=== PATIENT | female | born 1955 | race Asian ===

== ENCOUNTER 2018-08-31 18:42 | Inpatient (IN) | payer MEDICARE, OTHER ==
[2018-08-31 19:18] LABS: WHITE BLOOD COUNT 11.1 10^3/ul (4.8-10.8)
[2018-08-31 19:18] LABS: ADD MAN DIFF? NO; BASOPHIL # 0.1 10^3/ul (0.0-0.1); BASOPHILS % 0.5 % (0.0-2.0); EOSINOPHILS # 0.1 10^3/ul (0.0-0.5); EOSINOPHILS % 0.7 % (0.0-7.0); HEMATOCRIT 37.2 % (37.0-47.0); HEMOGLOBIN 11.4 g/dl (12.0-16.0); LYMPHOCYTES # 1.3 10^3/ul (0.8-2.9); MEAN CORPUSCULAR HEMOGLOBIN 30.7 pg (29.0-33.0); MEAN CORPUSCULAR HGB CONC 30.6 g/dl (32.0-37.0); MEAN CORPUSCULAR VOLUME 100.3 fl (82.0-101.0); MEAN PLATELET VOLUME 10.5 fl (7.4-10.4); MONOCYTES % 8.6 % (0.0-11.0); NEUTROPHIL # 8.6 10^3/ul (1.6-7.5); NEUTROPHILS % 77.8 % (39.0-77.0); PLATELET COUNT 196 10^3/UL (140-415); RED BLOOD COUNT 3.71 10^6/ul (4.20-5.40); RED CELL DISTRIBUTION WIDTH 14.7 % (11.5-14.5)
[2018-08-31] MEDS: CEFTRIAXONE 1 GM/50 ML (PMX) 50 ML IVPB (19:35)
[2018-08-31] MEDS: ACETAMINOPHEN 650 MG SUPP PR (19:35)
[2018-08-31 19:38] LABS: INR 1.11; PARTIAL THROMBOPLASTIN TIME 36.3 Sec (23.0-35.0); PROTIME 14.4 Sec (11.9-14.9); PT RATIO 1.1
[2018-08-31 19:39] LABS: ALANINE AMINOTRANSFERASE 81 IU/L (13-69); ALBUMIN 3.9 g/dl (3.3-4.9); ALBUMIN/GLOBULIN RATIO 1.11; ALKALINE PHOSPHATASE 308 IU/L (42-121); ANION GAP 8 (5-13); ASPARTATE AMINO TRANSFERASE 127 IU/L (15-46); BLOOD UREA NITROGEN 20 mg/dl (7-20); CALCIUM 9.1 mg/dl (8.4-10.2); CARBON DIOXIDE 28 mmol/L (21-31); CHLORIDE 103 mmol/L (97-110); CREATININE 1.09 mg/dl (0.44-1.00); Estimated GFR 51 mL/min (>60); GLUCOSE 171 mg/dl (70-220); LIPASE 147 U/L (23-300); POTASSIUM 3.4 mmol/L (3.5-5.1); SODIUM 139 mmol/L (135-144); TOTAL PROTEIN 7.4 g/dl (6.1-8.1)
[2018-08-31 19:44] LABS: ADD UMIC YES; UR ASCORBIC ACID NEGATIVE (NEGATIVE); UR BACTERIA FEW /HPF (NONE SEEN); UR BILIRUBIN (Dip) NEGATIVE (NEGATIVE); UR BLOOD (Dip) 2+ mg/dL (NEGATIVE); UR CLARITY CLEAR (CLEAR); UR COLOR YELLOW (YELLOW); UR GLUCOSE (Dip) NEGATIVE (NEGATIVE); UR KETONES (Dip) NEGATIVE (NEGATIVE); UR LEUKOCYTE ESTERASE (Dip) NEGATIVE Leu/ul (NEGATIVE); UR NITRITE (Dip) NEGATIVE (NEGATIVE); UR RBC 5 /HPF (0-5); UR SPECIFIC GRAVITY (Dip) 1.012 (1.003-1.030); UR TOTAL PROTEIN (Dip) 3+ mg/dl (NEGATIVE); UR UROBILINOGEN (Dip) 1+ mg/dL (NEGATIVE); UR WBC 5 /HPF (0-5)
[2018-08-31] MEDS: ONDANSETRON 4 MG INJ IV (19:46)
[2018-08-31 19:48] LABS: B-TYPE NATRIURETIC PEPTIDE 3690 PG/ML (0-125)
[2018-08-31 19:51] LABS: LACTIC ACID 2.2 mmol/L (0.5-2.0)
[2018-08-31] MEDS ORDERED: ALBUTEROL/IPRATROPIUM (NEB) 3 ML AMP NEB (20:30)
[2018-08-31] MEDS ORDERED: NITROGLYCERIN (SL) 0.4 MG TAB SL (20:30)
[2018-08-31] MEDS ORDERED: VANCOMYCIN IV PER PHARMACY XX (20:30)
[2018-08-31] MEDS: FUROSEMIDE 40 MG INJ IV (20:36)
[2018-08-31] MEDS: ENOXAPARIN 40 MG/0.4 ML SYG SC (20:36)
[2018-08-31] MEDS: ASPIRIN 81 MG TAB PO (20:39)
[2018-08-31] MEDS: ASPIRIN 300 MG SUPP PR (20:42)
[2018-08-31] MEDS: VANCOMYCIN HCL 1.5 GM in SOD CHLORIDE 0.9% 250 ML IVPB (21:05)
[2018-08-31 21:19] LABS: LACTIC ACID 1.6 mmol/L (0.5-2.0)
[2018-08-31 23:35] LABS: CREATINE KINASE 124 IU/L (23-200)
[2018-08-31 23:36] LABS: LACTIC ACID 1.5 mmol/L (0.5-2.0)
[2018-08-31 23:48] LABS: CK-MB 1.19 ng/ml (0.0-2.4)
[2018-09-01 00:04] LABS: AADO2 Arterial 121.7 mmHg (7.0-24.0); Allen Test ACCEPTAB; Arterial Base Excess 1.1 mmol/L (-3.0-3); Arterial Blood Gas Oxygen Sat 98.3 mmHG (95.0-98.0); Arterial COHb 0.7 % (0.0-3.0); Arterial Fraction of Oxyhgb 97.3 % (93.0-99.0); Arterial HCO3 25.3 mmol/L (22.0-26.0); Arterial MetHb 0.3 % (0.0-1.5); Arterial pCO2 38.4 mmhg (35-45); Blood Gas IEPAP 18/5; MODE MASK - BIPAP; Site Left Radial
[2018-09-01 05:49] LABS: CREATININE 1.45 mg/dl (0.44-1.00)
[2018-09-01 05:49] LABS: BLOOD UREA NITROGEN 24 mg/dl (7-20)
[2018-09-01 05:58] LABS: CREATINE KINASE 136 IU/L (23-200)
[2018-09-01 06:04] LABS: CK-MB 1.32 ng/ml (0.0-2.4)
[2018-09-01] MEDS: ONDANSETRON 4 MG INJ IV ×2 (06:06→17:11)
[2018-09-01] MEDS: ACETAMINOPHEN 650MG/20.3ML CUP PO (06:07)
[2018-09-01] MEDS: PANTOPRAZOLE (EC) 40 MG TAB PO (06:07)
[2018-09-01] MEDS: ENOXAPARIN 100 MG/ML SYG SC (08:46)
[2018-09-01] MEDS ORDERED: VANCOMYCIN 750 MG (PMX) 250 ML IVPB (09:00)
[2018-09-01] MEDS: AMIODARONE 200 MG TAB PO (09:30)
[2018-09-01] MEDS: METOPROLOL (XL) 50 MG TAB PO (09:30)
[2018-09-01] MEDS: ASPIRIN 81 MG TAB PO (09:49)
[2018-09-01] MEDS: GABAPENTIN 100 MG CAP PO ×2 (09:49→20:52)
[2018-09-01] MEDS: traMADol 50 MG TAB PO ×2 (09:50→20:53)
[2018-09-01] MEDS ORDERED: LEFLUNOMIDE 10 MG TAB PO (10:00)
[2018-09-01] MEDS ORDERED: GLUCAGON 1 MG INJ IM (10:30)
[2018-09-01] MEDS ORDERED: GLUCOSE GEL 15 GRAM TUBE BUCCAL (10:30)
[2018-09-01] MEDS ORDERED: GLUCOSE GEL 15 GRAM TUBE PO ×2 (10:30)
[2018-09-01] MEDS ORDERED: DEXTROSE 50% 50 ML SYRINGE IV ×2 (10:30)
[2018-09-01] MEDS ORDERED: INSULIN GLARGINE [LANTus] (100 UNITS/ML) SYG SC ×2 (11:00)
[2018-09-01] MEDS ORDERED: INSULIN ASPART [NOVOLOG] 3 ML PEN SC (11:00)
[2018-09-01] MEDS: predniSONE 1 MG TAB PO (11:03)
[2018-09-01] MEDS: INSULIN ASPART [NOVOLOG] 3 ML PEN SC ×3 (11:30→20:53)
[2018-09-01 12:27] LABS: HEMOGLOBIN A1C 5.2 % (0-5.9)
[2018-09-01] MEDS: XELJANZ 11 MG PO (14:56)
[2018-09-01] MEDS: LEFLUNOMIDE 20 MG PO (14:58)
[2018-09-01] MEDS: POLYETHYLENE GLYCOL 17 GM PACKET PO (16:30)
[2018-09-01] MEDS: ALBUMIN HUMAN 25% 50 ML IV (20:51)
[2018-09-01] MEDS: FUROSEMIDE 20 MG INJ IV (20:51)
[2018-09-01] MEDS: VANCOMYCIN 1 GM 250 ML IVPB (20:51)
[2018-09-01] MEDS: DOCUSATE SODIUM 100 MG CAP PO (20:52)
[2018-09-01] MEDS: APIXABAN 5 MG TABLET PO (20:52)
[2018-09-01] MEDS ORDERED: VANCOMYCIN HCL 1.25 GM in SOD CHLORIDE 0.9% 250 ML IVPB (21:00)
[2018-09-02] MEDS: ONDANSETRON 4 MG INJ IV (04:15)
[2018-09-02 05:37] LABS: ADD MAN DIFF? NO
[2018-09-02] MEDS: PANTOPRAZOLE (EC) 40 MG TAB PO (05:50)
[2018-09-02 05:51] LABS: WHITE BLOOD COUNT 7.7 10^3/ul (4.8-10.8)
[2018-09-02 05:51] LABS: BASOPHILS % 0.3 % (0.0-2.0); EOSINOPHILS # 0.1 10^3/ul (0.0-0.5); EOSINOPHILS % 1.7 % (0.0-7.0); HEMATOCRIT 33.2 % (37.0-47.0); MEAN CORPUSCULAR HEMOGLOBIN 30.8 pg (29.0-33.0); MEAN CORPUSCULAR HGB CONC 30.1 g/dl (32.0-37.0); MEAN CORPUSCULAR VOLUME 102.2 fl (82.0-101.0); MEAN PLATELET VOLUME 10.9 fl (7.4-10.4); MONOCYTE # 0.7 10^3/ul (0.3-0.9); MONOCYTES % 9.5 % (0.0-11.0); NEUTROPHIL # 5.8 10^3/ul (1.6-7.5); NEUTROPHILS % 75.2 % (39.0-77.0); PLATELET COUNT 145 10^3/UL (140-415); RED BLOOD COUNT 3.25 10^6/ul (4.20-5.40); RED CELL DISTRIBUTION WIDTH 14.6 % (11.5-14.5)
[2018-09-02 06:29] LABS: CK INDEX 2.4; CK-MB 2.69 ng/ml (0.0-2.4); CREATINE KINASE 114 IU/L (23-200)
[2018-09-02 06:39] LABS: TROPONIN-I 0.864 ng/ml (0.000-0.120)
[2018-09-02 06:41] LABS: ALANINE AMINOTRANSFERASE 72 IU/L (13-69); ALBUMIN 3.3 g/dl (3.3-4.9); ALBUMIN/GLOBULIN RATIO 1.26; ALKALINE PHOSPHATASE 222 IU/L (42-121); ANION GAP 8 (5-13); ASPARTATE AMINO TRANSFERASE 62 IU/L (15-46); BILIRUBIN,INDIRECT 0.9 mg/dl (0-1.1); BILIRUBIN,TOTAL 0.9 mg/dl (0.2-1.3); BLOOD UREA NITROGEN 28 mg/dl (7-20); CALCIUM 8.6 mg/dl (8.4-10.2); CARBON DIOXIDE 30 mmol/L (21-31); CHLORIDE 104 mmol/L (97-110); CREATININE 1.62 mg/dl (0.44-1.00); Estimated GFR 32 mL/min (>60); GLUCOSE 92 mg/dl (70-220); MAGNESIUM 1.9 mg/dl (1.7-2.5); POTASSIUM 3.6 mmol/L (3.5-5.1); SODIUM 142 mmol/L (135-144); TOTAL PROTEIN 5.9 g/dl (6.1-8.1)
[2018-09-02 07:02] LABS: CHOLESTEROL 127 mg/dl (100-200)
[2018-09-02 07:02] LABS: CHOL/HDL RATIO 2.7 RATIO; HDL CHOLESTEROL 47 mg/dl (35-98); LDL CHOLESTEROL,CALCULATED 61 mg/dl; TRIGLYCERIDES 97 mg/dl (0-149)
[2018-09-02] MEDS: INSULIN ASPART [NOVOLOG] 3 ML PEN SC ×4 (07:35→21:00)
[2018-09-02] MEDS: ASPIRIN 81 MG TAB PO (08:19)
[2018-09-02] MEDS: AMIODARONE 200 MG TAB PO (08:20)
[2018-09-02] MEDS: METOPROLOL (XL) 50 MG TAB PO (08:22)
[2018-09-02] MEDS ORDERED: INSULIN GLARGINE [LANTus] (100 UNITS/ML) SYG SC (09:00)
[2018-09-02] MEDS ORDERED: MAGNESIUM SULFATE 1 GM/D5W 100 ML IVPB (10:00)
[2018-09-02] MEDS: MAGNESIUM SULFATE 1 GM/D5W 100 ML IVPB (10:12)
[2018-09-02] MEDS: DEXTROSE 5%-0.45% NACL 1,000 ML IV (10:19)
[2018-09-02] MEDS: POTASSIUM CHLORIDE 100 ML IVPB ×2 (13:04→15:06)
[2018-09-02 14:18] LABS: ADD UMIC YES; UR ASCORBIC ACID NEGATIVE (NEGATIVE); UR BACTERIA FEW /HPF (NONE SEEN); UR BILIRUBIN (Dip) NEGATIVE (NEGATIVE); UR BLOOD (Dip) 3+ mg/dL (NEGATIVE); UR BUDDING YEAST FEW /HPF (NONE SEEN); UR CLARITY CLOUDY (CLEAR); UR COLOR YELLOW (YELLOW); UR GLUCOSE (Dip) NEGATIVE (NEGATIVE); UR KETONES (Dip) TRACE mg/dL (NEGATIVE); UR LEUKOCYTE ESTERASE (Dip) TRACE Leu/ul (NEGATIVE); UR MUCUS FEW /HPF (NONE SEEN); UR NITRITE (Dip) NEGATIVE (NEGATIVE); UR RBC 129 /HPF (0-5); UR SPECIFIC GRAVITY (Dip) 1.015 (1.003-1.030); UR TOTAL PROTEIN (Dip) 1+ mg/dl (NEGATIVE); UR UROBILINOGEN (Dip) 1+ mg/dL (NEGATIVE); UR WBC 29 /HPF (0-5)
[2018-09-02 14:35] LABS: SODIUM,URINE RANDOM 37 mmol/L (30-90)
[2018-09-02 14:35] LABS: CREATININE,URINE RANDOM 116.47 mg/dl (20-320)
[2018-09-02] MEDS: DOCUSATE SODIUM 100 MG CAP PO ×2 (14:53→21:31)
[2018-09-02] MEDS: GABAPENTIN 100 MG CAP PO ×2 (14:53→21:31)
[2018-09-02] MEDS: POLYETHYLENE GLYCOL 17 GM PACKET PO (14:53)
[2018-09-02] MEDS: predniSONE 1 MG TAB PO (14:53)
[2018-09-02] MEDS: APIXABAN 5 MG TABLET PO ×2 (14:54→21:31)
[2018-09-02] MEDS: XELJANZ 11 MG PO (14:55)
[2018-09-02] MEDS: LEFLUNOMIDE 20 MG PO (14:55)
[2018-09-02] MEDS: traMADol 50 MG TAB PO ×2 (15:00→21:32)
[2018-09-02] MEDS ORDERED: BISACODYL 10 MG SUPP PR (16:00)
[2018-09-02] MEDS: VANCOMYCIN 1 GM 250 ML IVPB (21:32)
[2018-09-03] MEDS: ONDANSETRON 4 MG INJ IV ×2 (00:17→12:36)
[2018-09-03 06:12] LABS: ADD MAN DIFF? NO
[2018-09-03 06:22] LABS: WHITE BLOOD COUNT 5.3 10^3/ul (4.8-10.8)
[2018-09-03 06:22] LABS: BASOPHILS % 0.6 % (0.0-2.0); EOSINOPHILS # 0.1 10^3/ul (0.0-0.5); EOSINOPHILS % 2.5 % (0.0-7.0); LYMPHOCYTES # 0.8 10^3/ul (0.8-2.9); LYMPHOCYTES % 15.5 % (15.0-51.0); MEAN CORPUSCULAR HEMOGLOBIN 30.7 pg (29.0-33.0); MEAN CORPUSCULAR VOLUME 102.4 fl (82.0-101.0); MEAN PLATELET VOLUME 10.2 fl (7.4-10.4); MONOCYTE # 0.6 10^3/ul (0.3-0.9); MONOCYTES % 11.9 % (0.0-11.0); NEUTROPHIL # 3.7 10^3/ul (1.6-7.5); NEUTROPHILS % 69.3 % (39.0-77.0); PLATELET COUNT 140 10^3/UL (140-415); RED BLOOD COUNT 2.93 10^6/ul (4.20-5.40); RED CELL DISTRIBUTION WIDTH 14.2 % (11.5-14.5)
[2018-09-03] MEDS: PANTOPRAZOLE (EC) 40 MG TAB PO (06:41)
[2018-09-03 06:47] LABS: ALANINE AMINOTRANSFERASE 48 IU/L (13-69); ALBUMIN 2.9 g/dl (3.3-4.9); ALBUMIN/GLOBULIN RATIO 1.11; ALKALINE PHOSPHATASE 174 IU/L (42-121); ANION GAP 2 (5-13); ASPARTATE AMINO TRANSFERASE 38 IU/L (15-46); BILIRUBIN,INDIRECT 0.7 mg/dl (0-1.1); BILIRUBIN,TOTAL 0.7 mg/dl (0.2-1.3); BLOOD UREA NITROGEN 28 mg/dl (7-20); CALCIUM 8.6 mg/dl (8.4-10.2); CARBON DIOXIDE 32 mmol/L (21-31); CHLORIDE 106 mmol/L (97-110); CREATININE 1.47 mg/dl (0.44-1.00); Estimated GFR 36 mL/min (>60); GLUCOSE 102 mg/dl (70-220); MAGNESIUM 2.3 mg/dl (1.7-2.5); POTASSIUM 3.8 mmol/L (3.5-5.1); SODIUM 140 mmol/L (135-144); TOTAL PROTEIN 5.5 g/dl (6.1-8.1)
[2018-09-03 06:51] LABS: PHOSPHORUS 3.3 mg/dl (2.5-4.9)
[2018-09-03] MEDS: INSULIN ASPART [NOVOLOG] 3 ML PEN SC ×4 (07:55→20:14)
[2018-09-03] MEDS: GABAPENTIN 100 MG CAP PO ×2 (08:40→20:17)
[2018-09-03] MEDS: predniSONE 1 MG TAB PO (08:40)
[2018-09-03] MEDS: POLYETHYLENE GLYCOL 17 GM PACKET PO (08:40)
[2018-09-03] MEDS: XELJANZ 11 MG PO (08:40)
[2018-09-03] MEDS: AMIODARONE 200 MG TAB PO (08:41)
[2018-09-03] MEDS: METOPROLOL (XL) 50 MG TAB PO (08:41)
[2018-09-03] MEDS: APIXABAN 5 MG TABLET PO ×2 (08:41→20:17)
[2018-09-03] MEDS: DOCUSATE SODIUM 100 MG CAP PO ×2 (08:41→20:17)
[2018-09-03] MEDS: ASPIRIN 81 MG TAB PO (08:41)
[2018-09-03] MEDS: traMADol 50 MG TAB PO ×2 (09:20→20:18)
[2018-09-03] MEDS: LEFLUNOMIDE 20 MG TAB PO (09:47)
[2018-09-03] MEDS: DEXTROSE 5%-0.45% NACL 1,000 ML IV (09:47)
[2018-09-03 13:22] LABS: CREATINE KINASE 62 IU/L (23-200)
[2018-09-03 13:34] LABS: CK INDEX 2.5; CK-MB 1.54 ng/ml (0.0-2.4)
[2018-09-03 13:39] LABS: TROPONIN-I 0.536 ng/ml (0.000-0.120)
[2018-09-03 15:08] LABS: CREATININE, RANDOM URINE 117 mg/dL (20-275); MICROALBUMIN/CREATININE RATIO 197 (<30)
[2018-09-03 20:57] LABS: VANCOMYCIN,TROUGH 12.1 ug/ml (10.0-20.0)
[2018-09-03] MEDS: VANCOMYCIN 1 GM 250 ML IVPB (21:28)
[2018-09-03] MEDS: hydrALAzine 20 MG INJ IV (22:17)
[2018-09-04] MEDS: INSULIN ASPART [NOVOLOG] 3 ML PEN SC ×4 (00:25→17:32)
[2018-09-04] MEDS: PANTOPRAZOLE (EC) 40 MG TAB PO (06:14)
[2018-09-04 06:48] LABS: ADD MAN DIFF? NO
[2018-09-04 06:55] LABS: BASOPHILS % 0.6 % (0.0-2.0); EOSINOPHILS # 0.2 10^3/ul (0.0-0.5); HEMATOCRIT 31.9 % (37.0-47.0); HEMOGLOBIN 9.6 g/dl (12.0-16.0); LYMPHOCYTES # 1.9 10^3/ul (0.8-2.9); LYMPHOCYTES % 35.3 % (15.0-51.0); MEAN CORPUSCULAR HEMOGLOBIN 30.8 pg (29.0-33.0); MEAN CORPUSCULAR HGB CONC 30.1 g/dl (32.0-37.0); MEAN CORPUSCULAR VOLUME 102.2 fl (82.0-101.0); MEAN PLATELET VOLUME 10.3 fl (7.4-10.4); MONOCYTE # 0.7 10^3/ul (0.3-0.9); NEUTROPHIL # 2.6 10^3/ul (1.6-7.5); NEUTROPHILS % 47.9 % (39.0-77.0); PLATELET COUNT 159 10^3/UL (140-415); RED BLOOD COUNT 3.12 10^6/ul (4.20-5.40)
[2018-09-04 06:55] LABS: WHITE BLOOD COUNT 5.3 10^3/ul (4.8-10.8)
[2018-09-04 07:20] LABS: ALANINE AMINOTRANSFERASE 40 IU/L (13-69); ALBUMIN 3.1 g/dl (3.3-4.9); ALBUMIN/GLOBULIN RATIO 1.03; ALKALINE PHOSPHATASE 200 IU/L (42-121); ANION GAP 3 (5-13); ASPARTATE AMINO TRANSFERASE 35 IU/L (15-46); BILIRUBIN,INDIRECT 0.5 mg/dl (0-1.1); BILIRUBIN,TOTAL 0.5 mg/dl (0.2-1.3); BLOOD UREA NITROGEN 21 mg/dl (7-20); CALCIUM 8.7 mg/dl (8.4-10.2); CARBON DIOXIDE 32 mmol/L (21-31); CHLORIDE 106 mmol/L (97-110); Estimated GFR 50 mL/min (>60); GLUCOSE 94 mg/dl (70-220); POTASSIUM 3.9 mmol/L (3.5-5.1); SODIUM 141 mmol/L (135-144); TOTAL PROTEIN 6.1 g/dl (6.1-8.1)
[2018-09-04] MEDS: POLYETHYLENE GLYCOL 17 GM PACKET PO (09:00)
[2018-09-04] MEDS: XELJANZ 11 MG PO (09:29)
[2018-09-04] MEDS: LEFLUNOMIDE 20 MG TAB PO (09:30)
[2018-09-04] MEDS: ASPIRIN 81 MG TAB PO (09:30)
[2018-09-04] MEDS: APIXABAN 5 MG TABLET PO ×2 (09:30→21:07)
[2018-09-04] MEDS: DOCUSATE SODIUM 100 MG CAP PO ×2 (09:30→21:07)
[2018-09-04] MEDS: predniSONE 1 MG TAB PO (09:31)
[2018-09-04] MEDS: GABAPENTIN 100 MG CAP PO ×2 (09:31→21:06)
[2018-09-04] MEDS: traMADol 50 MG TAB PO ×2 (09:31→21:07)
[2018-09-04] MEDS: AMIODARONE 200 MG TAB PO (09:32)
[2018-09-04] MEDS: METOPROLOL (XL) 50 MG TAB PO (09:32)
[2018-09-04] MEDS: ONDANSETRON 4 MG INJ IV (09:39)
[2018-09-04] MEDS: FUROSEMIDE 20 MG INJ IV (12:07)
[2018-09-04] MEDS: VANCOMYCIN HCL 1.25 GM in SOD CHLORIDE 0.9% 250 ML IVPB (21:08)
[2018-09-04] MEDS: hydrALAzine 20 MG INJ IV (21:26)
[2018-09-05] MEDS: ONDANSETRON 4 MG INJ IV ×2 (06:10→12:11)
[2018-09-05] MEDS: PANTOPRAZOLE (EC) 40 MG TAB PO (06:10)
[2018-09-05 07:20] LABS: ANION GAP 5 (5-13); BLOOD UREA NITROGEN 22 mg/dl (7-20); CALCIUM 9.1 mg/dl (8.4-10.2); CARBON DIOXIDE 33 mmol/L (21-31); CHLORIDE 103 mmol/L (97-110); CREATININE 1.41 mg/dl (0.44-1.00); Estimated GFR 38 mL/min (>60); GLUCOSE 114 mg/dl (70-220); MAGNESIUM 1.9 mg/dl (1.7-2.5); PHOSPHORUS 3.9 mg/dl (2.5-4.9); POTASSIUM 3.7 mmol/L (3.5-5.1); SODIUM 141 mmol/L (135-144)
[2018-09-05] MEDS: INSULIN ASPART [NOVOLOG] 3 ML PEN SC ×4 (07:55→20:26)
[2018-09-05] MEDS: MECLIZINE 12.5 MG TAB PO ×2 (08:12→14:30)
[2018-09-05] MEDS: LEFLUNOMIDE 20 MG TAB PO (08:13)
[2018-09-05] MEDS: predniSONE 1 MG TAB PO (08:13)
[2018-09-05] MEDS: DOCUSATE SODIUM 100 MG CAP PO ×2 (08:13→20:06)
[2018-09-05] MEDS: METOPROLOL (XL) 50 MG TAB PO (08:14)
[2018-09-05] MEDS: APIXABAN 5 MG TABLET PO ×2 (08:14→20:06)
[2018-09-05] MEDS: GABAPENTIN 100 MG CAP PO ×2 (08:14→20:06)
[2018-09-05] MEDS: POLYETHYLENE GLYCOL 17 GM PACKET PO (08:15)
[2018-09-05] MEDS: ASPIRIN 81 MG TAB PO (08:15)
[2018-09-05] MEDS: AMIODARONE 200 MG TAB PO (08:18)
[2018-09-05] MEDS: XELJANZ 11 MG PO (08:19)
[2018-09-05] MEDS: traMADol 50 MG TAB PO ×2 (08:25→20:06)
[2018-09-05] MEDS: VANCOMYCIN HCL 1.25 GM in SOD CHLORIDE 0.9% 250 ML IVPB (20:06)
[2018-09-06] MEDS: PANTOPRAZOLE (EC) 40 MG TAB PO (05:15)
[2018-09-06] MEDS: MECLIZINE 12.5 MG TAB PO ×3 (05:21→21:09)
[2018-09-06 06:02] LABS: ADD MAN DIFF? NO
[2018-09-06 06:10] LABS: BASOPHILS % 0.4 % (0.0-2.0); EOSINOPHILS # 0.1 10^3/ul (0.0-0.5); EOSINOPHILS % 2.4 % (0.0-7.0); HEMOGLOBIN 9.8 g/dl (12.0-16.0); LYMPHOCYTES # 1.8 10^3/ul (0.8-2.9); LYMPHOCYTES % 32.5 % (15.0-51.0); MEAN CORPUSCULAR HEMOGLOBIN 30.6 pg (29.0-33.0); MEAN CORPUSCULAR HGB CONC 30.6 g/dl (32.0-37.0); MEAN PLATELET VOLUME 10.2 fl (7.4-10.4); MONOCYTE # 0.6 10^3/ul (0.3-0.9); MONOCYTES % 10.2 % (0.0-11.0); NEUTROPHILS % 54.3 % (39.0-77.0); PLATELET COUNT 222 10^3/UL (140-415); RED CELL DISTRIBUTION WIDTH 13.9 % (11.5-14.5)
[2018-09-06 06:10] LABS: WHITE BLOOD COUNT 5.5 10^3/ul (4.8-10.8)
[2018-09-06 06:42] LABS: ANION GAP 3 (5-13); BLOOD UREA NITROGEN 20 mg/dl (7-20); CALCIUM 8.8 mg/dl (8.4-10.2); CARBON DIOXIDE 33 mmol/L (21-31); CHLORIDE 104 mmol/L (97-110); CREATININE 1.36 mg/dl (0.44-1.00); Estimated GFR 39 mL/min (>60); GLUCOSE 85 mg/dl (70-220); PHOSPHORUS 4.1 mg/dl (2.5-4.9); POTASSIUM 3.7 mmol/L (3.5-5.1); SODIUM 140 mmol/L (135-144)
[2018-09-06] MEDS: INSULIN ASPART [NOVOLOG] 3 ML PEN SC ×4 (07:55→21:00)
[2018-09-06] MEDS: LEFLUNOMIDE 20 MG TAB PO (08:23)
[2018-09-06] MEDS: ASPIRIN 81 MG TAB PO (08:24)
[2018-09-06] MEDS: predniSONE 1 MG TAB PO (08:24)
[2018-09-06] MEDS: DOCUSATE SODIUM 100 MG CAP PO ×2 (08:25→21:09)
[2018-09-06] MEDS: APIXABAN 5 MG TABLET PO ×2 (08:25→21:09)
[2018-09-06] MEDS: AMIODARONE 200 MG TAB PO (08:25)
[2018-09-06] MEDS: METOPROLOL (XL) 50 MG TAB PO (08:26)
[2018-09-06] MEDS: XELJANZ 11 MG PO (08:26)
[2018-09-06] MEDS: traMADol 50 MG TAB PO ×2 (08:29→21:09)
[2018-09-06] MEDS: POLYETHYLENE GLYCOL 17 GM PACKET PO (08:29)
[2018-09-06] MEDS: GABAPENTIN 100 MG CAP PO ×2 (08:32→21:09)
[2018-09-06] MEDS: hydrALAzine 20 MG INJ IV (18:14)
[2018-09-06] MEDS: ONDANSETRON 4 MG INJ IV (21:02)
[2018-09-06] MEDS: VANCOMYCIN HCL 1.25 GM in SOD CHLORIDE 0.9% 250 ML IVPB (21:09)
[2018-09-07] MEDS: ONDANSETRON 4 MG INJ IV (05:51)
[2018-09-07] MEDS: PANTOPRAZOLE (EC) 40 MG TAB PO (05:51)
[2018-09-07 06:34] LABS: ADD MAN DIFF? NO
[2018-09-07 06:36] LABS: BASOPHIL # 0.1 10^3/ul (0.0-0.1); BASOPHILS % 0.8 % (0.0-2.0); EOSINOPHILS # 0.2 10^3/ul (0.0-0.5); EOSINOPHILS % 2.3 % (0.0-7.0); HEMATOCRIT 31.9 % (37.0-47.0); HEMOGLOBIN 9.6 g/dl (12.0-16.0); LYMPHOCYTES # 2.2 10^3/ul (0.8-2.9); LYMPHOCYTES % 29.8 % (15.0-51.0); MEAN CORPUSCULAR HEMOGLOBIN 30.3 pg (29.0-33.0); MEAN CORPUSCULAR HGB CONC 30.1 g/dl (32.0-37.0); MEAN CORPUSCULAR VOLUME 100.6 fl (82.0-101.0); MEAN PLATELET VOLUME 10.1 fl (7.4-10.4); MONOCYTE # 0.7 10^3/ul (0.3-0.9); MONOCYTES % 9.1 % (0.0-11.0); NEUTROPHIL # 4.3 10^3/ul (1.6-7.5); NEUTROPHILS % 57.5 % (39.0-77.0); PLATELET COUNT 238 10^3/UL (140-415); RED BLOOD COUNT 3.17 10^6/ul (4.20-5.40)
[2018-09-07 06:36] LABS: WHITE BLOOD COUNT 7.5 10^3/ul (4.8-10.8)
[2018-09-07 06:59] LABS: ANION GAP 4 (5-13); BLOOD UREA NITROGEN 22 mg/dl (7-20); CALCIUM 8.5 mg/dl (8.4-10.2); CARBON DIOXIDE 33 mmol/L (21-31); CHLORIDE 104 mmol/L (97-110); CREATININE 1.63 mg/dl (0.44-1.00); GLUCOSE 87 mg/dl (70-220); MAGNESIUM 2.1 mg/dl (1.7-2.5); PHOSPHORUS 4.3 mg/dl (2.5-4.9); POTASSIUM 3.7 mmol/L (3.5-5.1); SODIUM 141 mmol/L (135-144)
[2018-09-07] MEDS: INSULIN ASPART [NOVOLOG] 3 ML PEN SC ×4 (07:51→21:00)
[2018-09-07] MEDS: MECLIZINE 12.5 MG TAB PO ×3 (08:17→21:38)
[2018-09-07] MEDS: XELJANZ 11 MG PO (08:17)
[2018-09-07] MEDS: GABAPENTIN 100 MG CAP PO ×2 (08:17→21:38)
[2018-09-07] MEDS: ASPIRIN 81 MG TAB PO (08:17)
[2018-09-07] MEDS: AMIODARONE 200 MG TAB PO (08:18)
[2018-09-07] MEDS: LEFLUNOMIDE 20 MG TAB PO (08:18)
[2018-09-07] MEDS: APIXABAN 5 MG TABLET PO ×2 (08:19→21:37)
[2018-09-07] MEDS: METOPROLOL (XL) 50 MG TAB PO (08:19)
[2018-09-07] MEDS: traMADol 50 MG TAB PO ×2 (08:23→21:38)
[2018-09-07] MEDS: predniSONE 1 MG TAB PO (08:23)
[2018-09-07] MEDS: DOCUSATE SODIUM 100 MG CAP PO ×2 (08:27→21:00)
[2018-09-07] MEDS: POLYETHYLENE GLYCOL 17 GM PACKET PO (08:27)
[2018-09-07] MEDS: METOCLOPRAMIDE 10 MG TAB PO ×2 (13:28→21:38)
[2018-09-07 16:24] LABS: ADD UMIC YES; UR ASCORBIC ACID NEGATIVE (NEGATIVE); UR BACTERIA FEW /HPF (NONE SEEN); UR BILIRUBIN (Dip) NEGATIVE (NEGATIVE); UR BLOOD (Dip) 2+ mg/dL (NEGATIVE); UR BUDDING YEAST MANY /HPF (NONE SEEN); UR CLARITY SLIGHTLY CLOUDY (CLEAR); UR COLOR STRAW (YELLOW); UR GLUCOSE (Dip) NEGATIVE (NEGATIVE); UR KETONES (Dip) NEGATIVE (NEGATIVE); UR LEUKOCYTE ESTERASE (Dip) 1+ Leu/ul (NEGATIVE); UR NITRITE (Dip) NEGATIVE (NEGATIVE); UR RBC 15 /HPF (0-5); UR SPECIFIC GRAVITY (Dip) 1.004 (1.003-1.030); UR SQUAMOUS EPITHELIAL CELL FEW /HPF (FEW); UR TOTAL PROTEIN (Dip) NEGATIVE (NEGATIVE); UR UROBILINOGEN (Dip) NEGATIVE (NEGATIVE); UR WBC 15 /HPF (0-5)
[2018-09-07 16:25] LABS: CREATININE,URINE RANDOM 31.82 mg/dl (20-320)
[2018-09-07 16:25] LABS: SODIUM,URINE RANDOM 14 mmol/L (30-90)
[2018-09-07] MEDS: CLINDAMYCIN 600 MG/D5W (PMX) 50 ML IVPB (21:38)
[2018-09-08] MEDS: PANTOPRAZOLE (EC) 40 MG TAB PO (06:28)
[2018-09-08] MEDS: METOCLOPRAMIDE 10 MG TAB PO ×3 (06:28→20:42)
[2018-09-08] MEDS: CLINDAMYCIN 600 MG/D5W (PMX) 50 ML IVPB ×3 (06:28→20:46)
[2018-09-08 06:42] LABS: ADD MAN DIFF? NO
[2018-09-08 06:52] LABS: BASOPHIL # 0.1 10^3/ul (0.0-0.1); BASOPHILS % 0.7 % (0.0-2.0); EOSINOPHILS # 0.2 10^3/ul (0.0-0.5); EOSINOPHILS % 2.1 % (0.0-7.0); HEMOGLOBIN 10.4 g/dl (12.0-16.0); LYMPHOCYTES % 23.9 % (15.0-51.0); MEAN CORPUSCULAR HEMOGLOBIN 30.7 pg (29.0-33.0); MEAN CORPUSCULAR HGB CONC 30.6 g/dl (32.0-37.0); MEAN CORPUSCULAR VOLUME 100.3 fl (82.0-101.0); MEAN PLATELET VOLUME 10.4 fl (7.4-10.4); MONOCYTE # 0.8 10^3/ul (0.3-0.9); MONOCYTES % 9.4 % (0.0-11.0); NEUTROPHIL # 5.3 10^3/ul (1.6-7.5); NEUTROPHILS % 62.7 % (39.0-77.0); PLATELET COUNT 248 10^3/UL (140-415); RED BLOOD COUNT 3.39 10^6/ul (4.20-5.40); RED CELL DISTRIBUTION WIDTH 14.2 % (11.5-14.5)
[2018-09-08 06:52] LABS: WHITE BLOOD COUNT 8.4 10^3/ul (4.8-10.8)
[2018-09-08 07:23] LABS: ALBUMIN 3.3 g/dl (3.3-4.9); ANION GAP 5 (5-13); BLOOD UREA NITROGEN 25 mg/dl (7-20); CALCIUM 8.9 mg/dl (8.4-10.2); CARBON DIOXIDE 32 mmol/L (21-31); CHLORIDE 105 mmol/L (97-110); GLUCOSE 81 mg/dl (70-220); MAGNESIUM 2.1 mg/dl (1.7-2.5); PHOSPHORUS 4.5 mg/dl (2.5-4.9); POTASSIUM 4.1 mmol/L (3.5-5.1); SODIUM 142 mmol/L (135-144)
[2018-09-08] MEDS: INSULIN ASPART [NOVOLOG] 3 ML PEN SC ×4 (07:55→20:46)
[2018-09-08] MEDS: POLYETHYLENE GLYCOL 17 GM PACKET PO (09:00)
[2018-09-08] MEDS: DOCUSATE SODIUM 100 MG CAP PO ×2 (09:00→20:41)
[2018-09-08] MEDS: traMADol 50 MG TAB PO ×2 (09:37→20:43)
[2018-09-08] MEDS: GABAPENTIN 100 MG CAP PO ×2 (09:37→20:41)
[2018-09-08] MEDS: LEFLUNOMIDE 20 MG TAB PO (09:38)
[2018-09-08] MEDS: XELJANZ 11 MG PO (09:38)
[2018-09-08] MEDS: METOPROLOL (XL) 50 MG TAB PO (09:44)
[2018-09-08] MEDS: AMIODARONE 200 MG TAB PO (09:45)
[2018-09-08] MEDS: predniSONE 1 MG TAB PO (09:45)
[2018-09-08] MEDS: MECLIZINE 12.5 MG TAB PO ×3 (09:45→20:42)
[2018-09-08] MEDS: ASPIRIN 81 MG TAB PO (09:46)
[2018-09-08] MEDS: APIXABAN 5 MG TABLET PO ×2 (09:46→20:42)
[2018-09-08] MEDS: ATORVASTATIN 20 MG TAB PO (20:41)
[2018-09-08] MEDS: hydrALAzine 20 MG INJ IV (20:48)
[2018-09-09] MEDS: CLINDAMYCIN 600 MG/D5W (PMX) 50 ML IVPB ×3 (05:40→21:32)
[2018-09-09] MEDS: METOCLOPRAMIDE 10 MG TAB PO ×3 (05:40→21:32)
[2018-09-09] MEDS: PANTOPRAZOLE (EC) 40 MG TAB PO (05:40)
[2018-09-09 06:59] LABS: ADD MAN DIFF? NO
[2018-09-09 07:09] LABS: WHITE BLOOD COUNT 6.9 10^3/ul (4.8-10.8)
[2018-09-09 07:09] LABS: BASOPHILS % 0.6 % (0.0-2.0); EOSINOPHILS # 0.2 10^3/ul (0.0-0.5); EOSINOPHILS % 2.2 % (0.0-7.0); HEMATOCRIT 32.2 % (37.0-47.0); HEMOGLOBIN 9.8 g/dl (12.0-16.0); LYMPHOCYTES # 2.2 10^3/ul (0.8-2.9); LYMPHOCYTES % 31.3 % (15.0-51.0); MEAN CORPUSCULAR HEMOGLOBIN 30.4 pg (29.0-33.0); MEAN CORPUSCULAR HGB CONC 30.4 g/dl (32.0-37.0); MEAN PLATELET VOLUME 9.9 fl (7.4-10.4); MONOCYTE # 0.7 10^3/ul (0.3-0.9); MONOCYTES % 10.7 % (0.0-11.0); NEUTROPHIL # 3.8 10^3/ul (1.6-7.5); NEUTROPHILS % 54.5 % (39.0-77.0); PLATELET COUNT 296 10^3/UL (140-415); RED BLOOD COUNT 3.22 10^6/ul (4.20-5.40); RED CELL DISTRIBUTION WIDTH 14.3 % (11.5-14.5)
[2018-09-09 07:40] LABS: ANION GAP 6 (5-13); BLOOD UREA NITROGEN 21 mg/dl (7-20); CALCIUM 8.5 mg/dl (8.4-10.2); CARBON DIOXIDE 29 mmol/L (21-31); CHLORIDE 107 mmol/L (97-110); CREATININE 1.72 mg/dl (0.44-1.00); Estimated GFR 30 mL/min (>60); GLUCOSE 87 mg/dl (70-220); PHOSPHORUS 4.6 mg/dl (2.5-4.9); POTASSIUM 3.8 mmol/L (3.5-5.1); SODIUM 142 mmol/L (135-144)
[2018-09-09] MEDS: INSULIN ASPART [NOVOLOG] 3 ML PEN SC ×4 (07:41→20:58)
[2018-09-09 07:51] LABS: ALBUMIN 2.9 g/dl (3.3-4.9); ANION GAP 7 (5-13); BLOOD UREA NITROGEN 21 mg/dl (7-20); CALCIUM 8.7 mg/dl (8.4-10.2); CARBON DIOXIDE 29 mmol/L (21-31); CHLORIDE 107 mmol/L (97-110); CREATININE 1.73 mg/dl (0.44-1.00); GLUCOSE 80 mg/dl (70-220); MAGNESIUM 2.1 mg/dl (1.7-2.5); PHOSPHORUS 4.7 mg/dl (2.5-4.9); SODIUM 143 mmol/L (135-144)
[2018-09-09] MEDS: AMIODARONE 200 MG TAB PO (08:10)
[2018-09-09] MEDS: GABAPENTIN 100 MG CAP PO ×2 (08:10→20:26)
[2018-09-09] MEDS: POLYETHYLENE GLYCOL 17 GM PACKET PO (08:10)
[2018-09-09] MEDS: MECLIZINE 12.5 MG TAB PO ×3 (08:11→20:26)
[2018-09-09] MEDS: APIXABAN 5 MG TABLET PO ×2 (08:11→20:26)
[2018-09-09] MEDS: DOCUSATE SODIUM 100 MG CAP PO ×2 (08:11→20:25)
[2018-09-09] MEDS: ASPIRIN 81 MG TAB PO (08:11)
[2018-09-09] MEDS: LEFLUNOMIDE 20 MG TAB PO (08:11)
[2018-09-09] MEDS: predniSONE 1 MG TAB PO (08:12)
[2018-09-09] MEDS: METOPROLOL (XL) 50 MG TAB PO (08:13)
[2018-09-09] MEDS: traMADol 50 MG TAB PO ×2 (08:17→20:53)
[2018-09-09] MEDS: XELJANZ 11 MG PO (08:17)
[2018-09-09] MEDS: ATORVASTATIN 20 MG TAB PO (20:26)
[2018-09-10 06:21] LABS: ADD MAN DIFF? NO
[2018-09-10 06:24] LABS: BASOPHIL # 0.1 10^3/ul (0.0-0.1); BASOPHILS % 0.8 % (0.0-2.0); EOSINOPHILS # 0.2 10^3/ul (0.0-0.5); EOSINOPHILS % 2.3 % (0.0-7.0); HEMATOCRIT 31.4 % (37.0-47.0); HEMOGLOBIN 9.6 g/dl (12.0-16.0); LYMPHOCYTES # 1.9 10^3/ul (0.8-2.9); LYMPHOCYTES % 28.1 % (15.0-51.0); MEAN CORPUSCULAR HEMOGLOBIN 30.7 pg (29.0-33.0); MEAN CORPUSCULAR HGB CONC 30.6 g/dl (32.0-37.0); MEAN CORPUSCULAR VOLUME 100.3 fl (82.0-101.0); MEAN PLATELET VOLUME 9.5 fl (7.4-10.4); MONOCYTE # 0.7 10^3/ul (0.3-0.9); MONOCYTES % 10.5 % (0.0-11.0); NEUTROPHIL # 3.8 10^3/ul (1.6-7.5); NEUTROPHILS % 57.5 % (39.0-77.0); PLATELET COUNT 296 10^3/UL (140-415); RED BLOOD COUNT 3.13 10^6/ul (4.20-5.40)
[2018-09-10 06:24] LABS: WHITE BLOOD COUNT 6.7 10^3/ul (4.8-10.8)
[2018-09-10] MEDS: METOCLOPRAMIDE 10 MG TAB PO ×2 (06:29→14:45)
[2018-09-10] MEDS: CLINDAMYCIN 600 MG/D5W (PMX) 50 ML IVPB ×2 (06:29→14:45)
[2018-09-10] MEDS: PANTOPRAZOLE (EC) 40 MG TAB PO (06:29)
[2018-09-10 07:07] LABS: ANION GAP 4 (5-13); BLOOD UREA NITROGEN 20 mg/dl (7-20); CALCIUM 8.6 mg/dl (8.4-10.2); CARBON DIOXIDE 31 mmol/L (21-31); CHLORIDE 107 mmol/L (97-110); CREATININE 1.68 mg/dl (0.44-1.00); Estimated GFR 31 mL/min (>60); GLUCOSE 79 mg/dl (70-220); MAGNESIUM 2.1 mg/dl (1.7-2.5); PHOSPHORUS 4.7 mg/dl (2.5-4.9); POTASSIUM 3.9 mmol/L (3.5-5.1); SODIUM 142 mmol/L (135-144)
[2018-09-10] MEDS: INSULIN ASPART [NOVOLOG] 3 ML PEN SC ×2 (07:55→11:50)
[2018-09-10] MEDS: APIXABAN 5 MG TABLET PO (08:21)
[2018-09-10] MEDS: POLYETHYLENE GLYCOL 17 GM PACKET PO (08:21)
[2018-09-10] MEDS: DOCUSATE SODIUM 100 MG CAP PO (08:21)
[2018-09-10] MEDS: ASPIRIN 81 MG TAB PO (08:21)
[2018-09-10] MEDS: predniSONE 1 MG TAB PO (08:22)
[2018-09-10] MEDS: AMIODARONE 200 MG TAB PO (08:22)
[2018-09-10] MEDS: METOPROLOL (XL) 50 MG TAB PO (08:23)
[2018-09-10] MEDS: LEFLUNOMIDE 20 MG TAB PO (08:23)
[2018-09-10] MEDS: MECLIZINE 12.5 MG TAB PO ×2 (08:23→14:45)
[2018-09-10] MEDS: XELJANZ 11 MG PO (08:24)
[2018-09-10] MEDS: GABAPENTIN 100 MG CAP PO (08:24)
[2018-09-10] MEDS: traMADol 50 MG TAB PO (08:28)
[2018-09-10] MEDS: LIDOCAINE 1% (MPF) 5 ML VIAL SC (12:00)
[2018-09-10] MEDS: hydrALAzine 20 MG INJ IV (15:50)
[2018-09-10] MEDS: AMLODIPINE 5 MG TAB PO (15:59)
== END 2018-09-10 16:15 | DRG 871 ==
LOC: TEL 09-02 19:36 → E/R 18:42 → ICU 21:52
PROC: 5A09357 Assistance with Respiratory Ventilation, Less than 24 Consecutive Hours, Continuous Positive Airway Pressure (ICD-10-PCS; 2018-09-01)
PROC: 4A033R1 Measurement of Arterial Saturation, Peripheral, Percutaneous Approach (ICD-10-PCS; 2018-09-01)
PROC: 05HY33Z Insertion of Infusion Device into Upper Vein, Percutaneous Approach (ICD-10-PCS; principal; 2018-09-10)
PROC: B54NZZA Ultrasonography of Left Upper Extremity Veins, Guidance (ICD-10-PCS; 2018-09-10)
DX: A41.02 Sepsis due to Methicillin resistant Staphylococcus aureus (principal); J18.9 Pneumonia, unspecified organism; I21.A1 Myocardial infarction type 2; I50.33 Acute on chronic diastolic (congestive) heart failure; J96.01 Acute respiratory failure with hypoxia; E87.2 Acidosis; N17.9 Acute kidney failure, unspecified; I13.0 Hypertensive heart and chronic kidney disease with heart failure and stage 1 through stage 4 chronic kidney disease, or unspecified chronic kidney disease; L97.919 Non-pressure chronic ulcer of unspecified part of right lower leg with unspecified severity; I16.0 Hypertensive urgency; M06.9 Rheumatoid arthritis, unspecified; I48.0 Paroxysmal atrial fibrillation; J45.909 Unspecified asthma, uncomplicated; K59.00 Constipation, unspecified; N18.9 Chronic kidney disease, unspecified; E11.22 Type 2 diabetes mellitus with diabetic chronic kidney disease; E66.01 Morbid (severe) obesity due to excess calories; D64.9 Anemia, unspecified; Z68.39 Body mass index [BMI] 39.0-39.9, adult; H81.10 Benign paroxysmal vertigo, unspecified ear; Z88.0 Allergy status to penicillin; Z79.01 Long term (current) use of anticoagulants
CPT/HCPCS: 36415; 36600; 71045; 76705; 76775; 76937; 80048; 80053; 80061; 80069; 80202; 81001; 81003; 82043; 82550; 82553; 82565; 82803; 82962; 83036; 83605; 83690; 83735; 83880; 84100; 84155; 84300; 84484; 84520; 85025; 85610; 85730; 87040-91; 87086; 87400; 89190; 93005; 93306; 94660; 96374; 96375; 97110; 97116; 97162; 97167; 97530; 99285-25